=== PATIENT | female | born 1975 | race Caucasian/White ===

== ENCOUNTER 2017-04-05 00:03 | Emergency (ER) | payer BC, OTHER ==
[~2017-04-05] VITALS: Ht 165.1 cm; Wt 86.3 kg
[~2017-04-05 00:03] MED LIST: CIPRO500 MG PO; MOTRIN800 MG PO; MULTIVITAMIN1 EAC2 PO; ROXICET 5-325500 ML PO; ZOFRAN ODT4 MG PO
[2017-04-05] MEDS ORDERED: KEFLEX500 MG PO (00:30)
[2017-04-05 02:25] VITALS: BP 102/69
== END 2017-04-05 02:26 | disposition home or self-care (01) ==
LOC: EME 00:03
PROC: 0H95XZZ Drainage of Chest Skin, External Approach (ICD-10-PCS; principal; 2017-04-05)
DX: L02.213 Cutaneous abscess of chest wall (principal); L30.9 Dermatitis, unspecified; Z88.2 Allergy status to sulfonamides
CPT/HCPCS: 87070; 87075; 87205; 99281; 99284